=== PATIENT | male | born 1960 | race Caucasian/White ===

== ENCOUNTER 2021-07-31 09:50 | Emergency (ER) | payer OTHER, BC ==
[2021-07-31] MEDS ORDERED: Lidocaine 1% 5 ML VIAL ONE (10:08)
== END 2021-07-31 11:12 | disposition home or self-care (01) ==
LOC: LB.ED 09:50
DX: S67.21XA Crushing injury of right hand, initial encounter (principal); S61.214A Laceration without foreign body of right ring finger without damage to nail, initial encounter; W26.8XXA Contact with other sharp object(s), not elsewhere classified, initial encounter; Y99.0 Civilian activity done for income or pay
CPT/HCPCS: 12002; 73140-F8; 99282; 99283-25

== ENCOUNTER 2021-10-29 10:05 | Emergency (ER) | payer OTHER, BC | END 2021-10-29 11:10 | disposition home or self-care (01) | LOC: LB.ED 10:05 | DX: M19.072 Primary osteoarthritis, left ankle and foot (principal); Z79.899 Other long term (current) drug therapy | CPT/HCPCS: 36415; 84550; 99283 ==

== ENCOUNTER 2022-12-06 10:57 | Day surgery (SDC) | payer OTHER ==
[~2022-12-06 10:57] MED LIST: Metoclopramide 10 MG/2 ML SDV IV PRN
[2022-12-06] MEDS: Sodium Chloride 0.9% 1,000 ML IV SCH (11:21)
[2022-12-06] MEDS ORDERED: Propofol 1,000 MG/100 ML SDV ONE (12:00)
== END 2022-12-06 12:56 | disposition home or self-care (01) ==
LOC: LB.SDS 10:57
PROVIDERS: ATTEND Surgery
DX: Z12.11 Encounter for screening for malignant neoplasm of colon (principal); K57.30 Diverticulosis of large intestine without perforation or abscess without bleeding
CPT/HCPCS: J2704; J7030

== ENCOUNTER 2023-03-29 07:01 | Emergency (ER) | payer OTHER ==
[2023-03-29] MEDS ORDERED: Ciprofloxacin 0.3% Ophth Soln 2.5 ML Bottle ONE (07:45)
== END 2023-03-29 07:52 | disposition home or self-care (01) ==
LOC: LB.ED 07:01
DX: T15.01XA Foreign body in cornea, right eye, initial encounter (principal)
CPT/HCPCS: 65220; 99283; A9270-GY

== ENCOUNTER 2023-12-09 17:16 | Emergency (ER) | payer OTHER ==
[2023-12-09] MEDS: Tetracaine HCl/PF 0.5% 4 ML Bottle EYERT ONE (17:35)
== END 2023-12-09 18:00 | disposition home or self-care (01) ==
LOC: LB.ED 17:16
DX: T15.01XA Foreign body in cornea, right eye, initial encounter (principal); Z79.899 Other long term (current) drug therapy; X58.XXXA Exposure to other specified factors, initial encounter
CPT/HCPCS: 65220; 99283; 99283-25

== ENCOUNTER 2024-07-24 18:04 | Emergency (ER) | payer OTHER | END 2024-07-24 19:40 | disposition home or self-care (01) | LOC: LB.ED 18:04 | DX: M77.8 Other enthesopathies, not elsewhere classified (principal); X50.0XXA Overexertion from strenuous movement or load, initial encounter | CPT/HCPCS: 73030-RT; 99283 ==